=== PATIENT | male | born 1995 | race Caucasian/White ===

== ENCOUNTER → 2018-02-26 | Outpatient (CLI) | payer OTHER | LOC: M.RAD 09:57 | DX: R06.02 Shortness of breath (principal); R07.89 Other chest pain ==

== ENCOUNTER 2020-02-01 08:53 | Emergency (ER) | payer OTHER ==
[~2020-02-01] VITALS: Ht 185.4 cm; Wt 79.4 kg
[2020-02-01] MEDS ORDERED: BACTRIM DS TAB1 EAC1 PO (09:03)
[2020-02-01 09:15] VITALS: BP 145/85
== END 2020-02-01 09:26 | disposition home or self-care (01) ==
LOC: M.ERS 08:53
DX: L02.11 Cutaneous abscess of neck (principal)

== ENCOUNTER 2021-02-07 02:45 | Emergency (ER) | payer OTHER ==
[~2021-02-07] VITALS: Ht 182.9 cm; Wt 74.8 kg
[~2021-02-07 02:45] MED LIST: BACTRIM DS TAB1 EAC1 PO
[2021-02-07] MEDS ORDERED: PREDNISONE50 MG PO (03:13)
[2021-02-07] MEDS ORDERED: TRIAMCINOLONE A80 G2 TOP (03:13)
[2021-02-07 03:30] VITALS: BP 149/95
== END 2021-02-07 03:31 | disposition home or self-care (01) ==
LOC: M.ERS 02:45
DX: L25.9 Unspecified contact dermatitis, unspecified cause (principal)